=== PATIENT | female | born 1960 | race Caucasian/White ===

== ENCOUNTER 2019-08-09 10:51 | Emergency (ER) | payer OTHER, SELFPAY ==
--- NOTE | ~2019-08-09 | XR_ITS ---
EXAMINATION: XR knee LT min 4V, XR tibia fibula RT 2V DATE: 08/09/2019 12:44 INDICATION: Fall with scraped knee and pain around the right ankle. TECHNIQUE: 1. Anteroposterior, 2 oblique and crosstable lateral views of the left knee were obtained. 2. Anteroposterior and lateral views of the right tibia and fibula were obtained. COMPARISON: None. FINDINGS: Left knee: Alignment is normal. No fracture. Minimal to mild tricompartmental osteoarthritis at the right knee with tiny marginal osteophytes at the patella and along the medial tibial plateau. No joint effusion/ layering lipohemarthrosis. Soft tissues are unremarkable. Right lower leg: Alignment is normal. No fracture. Mild tricompartmental osteoarthritis at the right knee with small m arginal osteophytes in all 3 compartments and joint space narrowing the patellofemoral compartment. N o right knee joint effusion. Small enthesophyte at the proximal patella. Right ankle joint space is n ormal with no joint effusion. Soft tissues are unremarkable. IMPRESSION: 1. No acute osseous abnormality at the left knee with right lower leg. Reviewed, dictated and finalized at location A. IMPRESSION: 1. No acute osseous abnormality at the left knee with right lower leg.
[2019-08-09 11:15] VITALS: BP 136/89; PULSE 81; RESP 20; TEMP 37.1; O2SAT 100
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
== END 2019-08-09 13:51 | disposition home or self-care (01) ==
PROVIDERS: Emergency Provider General Practice; PCP Internal Medicine
DX: M25.562 Pain in left knee (principal); M79.604 Pain in right leg; V18.4XXA Pedal cycle driver injured in noncollision transport accident in traffic accident, initial encounter; Y93.55 Activity, bike riding
CPT/HCPCS: 73564; 73590; 99284